=== PATIENT | male | born 1995 | race Caucasian/White ===

== ENCOUNTER 2019-07-20 19:37 | Emergency (ER) | payer OTHER ==
[~2019-07-20] VITALS: Ht 167.6 cm; Wt 68.0 kg
--- NOTE | 2019-07-20 20:12 | Emergency Room Report ---
History of Present Illness General Chief Complaint: Male Urogenital Problems Present Illness HPI 24-year-old male with no significant past medical history here complaining of 1 week of dysuria and urinary difficulty. Patient went to a different clinic and was diagnosed with UTI, started taking Bactrim however still not improving. Denies any hematuria. Complains of clear discharge after termination of urination. Reports that he has not been sexually active for the past 2 years. Complains of bilateral flank pain and minimal nausea however denies fever chills. Complains of pain radiation to suprapubic area from flank side. 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 Patient History Past Medical History: see triage record Past Surgical History: none Pertinent Family History: none Immunizations: UTD Reviewed Nursing Documentation: PMH: Agreed; PSxH: Agreed Review of Systems All Other Systems: negative except mentioned in HPI Physical Exam Vital Signs Date Time Temp Pulse Resp B/P (MAP) Pulse Ox O2 Delivery O2 Flow Rate FiO2 07/20/19 19:57 98.2 78 16 131/79 (96) 97 Room Air Sp02 EP Interpretation: reviewed, normal General Appearance: no apparent distress, alert, GCS 15, non-toxic Head: normocephalic, atraumatic Eyes: bilateral eye normal inspection, bilateral eye PERRL ENT: hearing grossly normal, normal pharynx, no angioedema, normal voice Neck: full range of motion, supple/symm/no masses Respiratory: no rhonchi Cardiovascular #1: regular rate, rhythm, no edema Gastrointestinal: non tender Rectal: deferred Genitourinary: no CVA tenderness Neurologic: alert, motor strength/tone normal, oriented x3, sensory intact, responsive, speech normal Psychiatric: judgement/insight normal, memory normal, mood/affect normal, no suicidal/homicidal ideation Skin: no rash Lymphatic: no adenopathy Medical Decision Making PA Attestation All diagnoses and treatment plans were reviewed and discussed with my supervising physician Dr. Diallo Diagnostic Impression: Primary Impression: UTI (urinary tract infection) ER Course 24-year-old male with no significant past medical history here complaining of 1 week of dysuria and urinary difficulty. Patient went to a different clinic and was diagnosed with UTI, started taking Bactrim however still not improving. Denies any hematuria. Complains of clear discharge after termination of urination. Reports that he has not been sexually active for the past 2 years. Complains of bilateral flank pain and minimal nausea however denies fever chills. Complains of pain radiation to suprapubic area from flank side. Ddx considered but are not limited to: UTI, pyelonephritis, urinary incontinence , prolapsed bladder, renal stone, gonorrhea, chlamydia Vital signs: are WNL, pt. is afebrile H&PE are most consistent with: UTI ORDERS: UA, urine cx, CBC, CMP, CT abdomen pelvis without contrast, keflex, pyridium ED INTERVENTIONS: Rocephin 250 mg IM, azithromycin DISCHARGE: At this time pt. is stable for d/c to home. Will provide printed patient care instructions, and any necessary prescriptions. Care plan and follow up instructions have been discussed with the patient prior to discharge. Take medication as directed, follow primary doctor for referral to urologist for prostate check, PSA level to be checked, if worsening symptoms return to the emergency room CT/MRI/US Diagnostic Results CT/MRI/US Diagnostic Results : Imaging Test Ordered: CT abd pelvis no contrast Impression FINDINGS: Lung bases: Unremarkable. No mass. No consolidation. ABDOMEN: Liver: Unremarkable. Gallbladder and bile ducts: Unremarkable. No calcified stones. No ductal dilation. Pancreas: Unremarkable. No ductal dilation. Spleen: Unremarkable. No splenomegaly. Adrenals: Unremarkable. No mass. Kidneys and ureters: Unremarkable. No obstructing stones. No hydronephrosis. Stomach and bowel: Unremarkable. PELVIS: Appendix: Normal appendix. Bladder: Unremarkable. No stones. Reproductive: Unremarkable as visualized. ABDOMEN and PELVIS: Intraperitoneal space: Unremarkable. No free air. No significant fluid collection. Bones/joints: No acute fracture. No dislocation. Soft tissues: Unremarkable. Vasculature: Unremarkable. No abdominal aortic aneurysm. Lymph nodes: Unremarkable. No enlarged lymph nodes. IMPRESSION: Normal appendix. No acute abnormality. Last Vital Signs Date Time Temp Pulse Resp B/P (MAP) Pulse Ox O2 Delivery O2 Flow Rate FiO2 07/20/19 19:57 98.2 78 16 131/79 (96) 97 Room Air Disposition: HOME, SELF-CARE Condition: Stable Referrals: [facility] (PCP) Patient Instructions: Urinary Tract Infection Additional Instructions: Take medication as directed, follow primary doctor for referral to urologist for prostate check, PSA level to be checked, if worsening symptoms return to the emergency room Leticia Leiva July 20, 2019 20:12
[2019-07-20 20:22] VITALS: BP 131/79
--- NOTE | 2019-07-20 20:24 | NUR ---
ED Nurse Note: patient was taken to CT
--- NOTE | 2019-07-20 20:25 | NUR ---
ED Nurse Note: Patient walked in c/o difficulty urinating X one week. Pt stated he was on bactrim; is still taking bactrim, but it did not work. Pt stated burning while urinating; left flank pain; clear thick discharge. Pt denies blood in urine. Denies unprotected sex.
--- NOTE | 2019-07-20 20:30 | NUR ---
ED Nurse Note: patient is back from CT
--- NOTE | 2019-07-20 20:50 | Diagnostic Imaging Report ---
EXAM: CT Abdomen and Pelvis Without Intravenous Contrast CLINICAL HISTORY: PAIN TECHNIQUE: Axial computed tomography images of the abdomen and pelvis without intravenous contrast. CTDI is 4 mGy and DLP is 243 mGy-cm. One or more of the following dose reduction techniques were used: automated exposure control, adjustment of the mA and/or kV according to patient size, use of iterative reconstruction technique. COMPARISON: No relevant prior studies available. FINDINGS: Lung bases: Unremarkable. No mass. No consolidation. ABDOMEN: Liver: Unremarkable. Gallbladder and bile ducts: Unremarkable. No calcified stones. No ductal dilation. Pancreas: Unremarkable. No ductal dilation. Spleen: Unremarkable. No splenomegaly. Adrenals: Unremarkable. No mass. Kidneys and ureters: Unremarkable. No obstructing stones. No hydronephrosis. Stomach and bowel: Unremarkable. PELVIS: Appendix: Normal appendix. Bladder: Unremarkable. No stones. Reproductive: Unremarkable as visualized. ABDOMEN and PELVIS: Intraperitoneal space: Unremarkable. No free air. No significant fluid collection. Bones/joints: No acute fracture. No dislocation. Soft tissues: Unremarkable. Vasculature: Unremarkable. No abdominal aortic aneurysm. Lymph nodes: Unremarkable. No enlarged lymph nodes. IMPRESSION: Normal appendix. No acute abnormality.
[2019-07-20 20:57] LABS: BASOPHILS % (AUTO) 1.2 % (0.0-2.0); EOSINOPHILS % (AUTO) 0.5 % (0.0-3.0); HEMATOCRIT 46.9 % (42.0-52.0); HEMOGLOBIN 15.3 G/DL (14.2-18.0); LYMPHOCYTES % (AUTO) 21.5 % (20.0-45.0); MEAN CORPUSCULAR VOLUME 97 FL (80-99); MONOCYTES % (AUTO) 11.1 % (1.0-10.0); NEUTROPHILS % (AUTO) 65.7 % (45.0-75.0); PLATELET COUNT 162 K/UL (150-450); RED BLOOD COUNT 4.86 M/UL (4.70-6.10); RED CELL DISTRIBUTION WIDTH 12.4 % (11.6-14.8)
[2019-07-20] MEDS ORDERED: Azithromycin 250mg tab ORAL ONE (21:00)
[2019-07-20] MEDS ORDERED: Lidocaine 1% MPF 10mg/ml 5ml INJ ONE (21:00)
[2019-07-20 21:08] LABS: ANION GAP 10 mmol/L (5-15); BLOOD UREA NITROGEN 21 mg/dL (7-18); CARBON DIOXIDE 28 MMOL/L (21-32); CHLORIDE 106 MMOL/L (98-107); CREATININE 1.3 MG/DL (0.55-1.30); POTASSIUM 4.1 MMOL/L (3.5-5.1); SODIUM 144 MMOL/L (136-145)
[2019-07-20] MEDS ORDERED: CEPHALEXIN500 MG ORAL (21:09)
[2019-07-20] MEDS ORDERED: PHENAZOPYRIDIN200 MG ORAL (21:09)
[2019-07-20 21:13] LABS: ALANINE AMINOTRANSFERASE 18 U/L (12-78); ALBUMIN 4.5 G/DL (3.4-5.0); ALBUMIN/GLOBULIN RATIO 1.3 (1.0-2.7); ALKALINE PHOSPHATASE 43 U/L (46-116); ASPARTATE AMINO TRANSFERASE 19 U/L (15-37); BILIRUBIN,TOTAL 0.3 MG/DL (0.2-1.0)
[2019-07-20] MEDS ORDERED: cefTRIAXone 1 GM in NS 55 ML IVPB ONE (21:15)
[2019-07-20 21:28] LABS: APPEARANCE,URINE CLEAR; BILIRUBIN, URINE NEGATIVE (NEGATIVE); GLUCOSE, URINE (UA) NEGATIVE (NEGATIVE); KETONES,URINE 1+ (NEGATIVE); LEUKOCYTE ESTERASE ,URINE NEGATIVE (NEGATIVE); NITRITE,URINE NEGATIVE (NEGATIVE); PH,URINE 6 (4.5-8.0); PROTEIN,URINE 1+ (NEGATIVE); UROBILINOGEN,URINE 4 MG/DL (0.0-1.0)
[2019-07-20 21:38] LABS: COLOR,URINE YELLOW
--- NOTE | 2019-07-20 21:46 | NUR ---
ER DISCHARGE NOTE: Patient is cleared to be discharged per ERMD, pt is aox4, on room air, with stable vital signs. pt was given dc and prescription instructions, pt was able to verbalize understanding, pt id band and iv site removed without complications. pt is able to ambulate with steady gait. pt took all belongings.
[2019-07-20 21:48] VITALS: BP 131/79
== END 2019-07-20 21:46 | disposition home or self-care (01) ==
LOC: EMR 19:54
DX: N39.0 Urinary tract infection, site not specified (principal); R11.0 Nausea
CPT/HCPCS: 36415; 74176; 80053; 81003; 85025; 96365; 96372; 99284; J0696

== ENCOUNTER 2019-09-15 21:43 | Emergency (ER) | payer OTHER ==
[~2019-09-15] VITALS: Ht 167.6 cm; Wt 68.0 kg
[~2019-09-15 21:43] MED LIST: CEPHALEXIN500 MG ORAL; PHENAZOPYRIDIN200 MG ORAL
[2019-09-15 21:55] VITALS: BP 143/80
[2019-09-15 22:00] VITALS: BP 124/72
--- NOTE | 2019-09-15 22:12 | Emergency Room Report ---
History of Present Illness General Chief Complaint: Male Urogenital Problems Source: Patient Present Illness HPI Disclaimer: Please note that this report is being documented using DRAGON technology. This can lead to erroneous entry secondary to incorrect interpretation by the dictating instrument. HPI: 24-year-old male presents for evaluation of sore throat and dysuria. Symptoms have been intermittent for 1 month. The patient states he and his girlfriend tested positive for chlamydia several weeks ago and were sexually treated however they continued to engage in sexual intercourse prior to resolution of symptoms and believes he may have reinfected each other. He reports sore throat but denies change in phonation, stridor. He is tolerating secretions well. Reports low-grade fevers less than 100 degrees. Mild tender nodes also reported. Denies vomiting, diarrhea. He reports difficulty initiating urination and mild dysuria. He denies penile discharge, vesicles, ulcerations, skin breakdown. Does not use barrier methods for contraception. He was seen at [place] emergency department yesterday and given azithromycin for presumed pharyngitis. He is requesting STD testing and treatment. Girlfriend here with similar complaints. 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 EOMI. uvula midline. Tonsils are 2+ and mildly erythematous. No significant edema, no exudate. Tolerating secretions. Normal phonation. No stridor. Tender bilateral submandibular nodes. Resp: Normal work of breathing Skin: Intact. No abrasions, laceration or rash over the exposed skin MSK: Normal tone and bulk. Moving all extremities. No obvious deformity. Neuro: Awake and alert. Mentating appropriately Medical Decision Making Diagnostic Impression: Primary Impression: Acute pharyngitis Additional Impression: STD exposure ER Course Is a 24-year-old male presenting for evaluation of sore throat and dysuria recently testing positive for oral chlamydial infection. Patient is already been given azithromycin and continues a Z-Denis for treatment of pharyngitis. Urinalysis unremarkable. He will be given IM Rocephin and take the additional 3 tablets of azithromycin he has at home as he took the first tablet approximately 1 hour ago. This would bring to 1000 mg daily and treatment of possible chlamydial/gonorrheal infection. Low Centor score. He and his sexual partner was also in the ED will be sent to outpatient STD clinic for further testing of GC/chlamydia as well as others including but not limited to HIV, syphilis, herpes etc. Laboratory Tests Test 09/15/19 22:03 Urine Color Pale yellow Urine Appearance Clear Urine pH 6.5 (4.5-8.0) Urine Specific [place] 1.010 (1.005-1.035) Urine Protein Negative (NEGATIVE) Urine Glucose (UA) Negative (NEGATIVE) Urine Ketones Negative (NEGATIVE) Urine Blood Negative (NEGATIVE) Urine Nitrite Negative (NEGATIVE) Urine Bilirubin Negative (NEGATIVE) Urine Urobilinogen Normal MG/DL (0.0-1.0) Urine Leukocyte Esterase Negative (NEGATIVE) Last Vital Signs Date Time Temp Pulse Resp B/P (MAP) Pulse Ox O2 Delivery O2 Flow Rate FiO2 09/15/19 21:52 96.8 89 16 150/84 (106) 99 Room Air Disposition: HOME, SELF-CARE Condition: Stable Luis Beebe MD Sep 15, 2019 22:12
[2019-09-15] MEDS ORDERED: Lidocaine 1% MPF 10mg/ml 5ml INJ ONE (22:15)
[2019-09-15 22:46] LABS: APPEARANCE,URINE CLEAR; BILIRUBIN, URINE NEGATIVE (NEGATIVE); COLOR,URINE PALE YELLOW; GLUCOSE, URINE (UA) NEGATIVE (NEGATIVE); KETONES,URINE NEGATIVE (NEGATIVE); LEUKOCYTE ESTERASE ,URINE NEGATIVE (NEGATIVE); NITRITE,URINE NEGATIVE (NEGATIVE); PH,URINE 6.5 (4.5-8.0); PROTEIN,URINE NEGATIVE (NEGATIVE); UROBILINOGEN,URINE NORMAL MG/DL (0.0-1.0)
[2019-09-15 23:01] VITALS: BP 125/73
== END 2019-09-15 23:00 | disposition home or self-care (01) ==
LOC: EMR 21:58
DX: J02.9 Acute pharyngitis, unspecified (principal); Z20.2 Contact with and (suspected) exposure to infections with a predominantly sexual mode of transmission
CPT/HCPCS: 81003; 96372; 96374; 99284; J0696